=== PATIENT | female | born 2000 | race Hispanic/Latino ===

== ENCOUNTER 2024-02-08 13:39 | Emergency (ER) | payer SELFPAY ==
[~2024-02-08] VITALS: Ht 160 cm; Wt 107.2 kg
[2024-02-08] MEDS: Morphine 4mg INJECTION 4 MG/ML INJ IV ONE (14:40)
[2024-02-08] MEDS: ONDANSETRON HCL INJ 2MG/ML 2ML 2 MG/ML VIAL IV STA (14:40)
[2024-02-08] MEDS: SODIUM CHLORIDE 0.9% 1000ML 1,000 ML IV ONE (14:40)
[2024-02-08] MEDS ORDERED: IOPAMIDOL 370 MG/ML 100 ML INFUS..BTL INJ ONE (15:41)
[2024-02-08] MEDS ORDERED: CEPHALEXIN500 MG PO (15:58)
[2024-02-08] MEDS ORDERED: DIPHENHYDRAMINE HCL INJ 50 MG/ML VIAL ONE (16:38)
[2024-02-08] MEDS: DIPHENHYDRAMINE HCL INJ 50 MG/ML VIAL IV ONE (16:43)
[2024-02-08] MEDS: FAMOTIDINE 20 MG/2 ML VIAL IV ONE (16:43)
[2024-02-08] MEDS ORDERED: BACTRIM DS TAB1 EACH PO (16:45)
[2024-02-08] MEDS ORDERED: BENADRYL25 M1 PO (16:45)
[2024-02-08] MEDS ORDERED: PEPCID20 MG PO (16:46)
[2024-02-08 17:00] VITALS: PULSE 80; RESP 16; TEMP 98.9; O2SAT 100
== END 2024-02-08 17:40 | disposition home or self-care (01) ==
LOC: FSED 13:45
DX: N92.6 Irregular menstruation, unspecified (principal); N92.0 Excessive and frequent menstruation with regular cycle; N39.0 Urinary tract infection, site not specified; L23.3 Allergic contact dermatitis due to drugs in contact with skin; T36.1X5A Adverse effect of cephalosporins and other beta-lactam antibiotics, initial encounter
CPT/HCPCS: 74177; 76830; 76856; 80053; 80307; 81003; 81025; 85025; 99284; J0696; J1200; J2270; J2405; J7030; Q9967